=== PATIENT | female | born 1955 | race Caucasian/White ===

== ENCOUNTER 2017-11-16 11:46 | Emergency (ER) | payer MEDICARE, OTHER ==
[~2017-11-16] VITALS: Ht 167.6 cm; Wt 68.0 kg
[~2017-11-16 11:46] MED LIST: ALBU8HFA PO; ARIP10TA15 PO; ARMO150T5 PO; BIOTIN PO; BUDE10.22 INH; BUPR100T5 PO; CALC950T2 PO; CLON2TAB PO; COLACE PO; FLAXSEED OIL PO; KEN40I IJ; LEVO100T PO; MAGN64TA8 PO; MELA3TAB PO; MULT1TAB74 PO; OMEP40CA37 PO; PRED10TA23 PO; SENN-25 PO; SERT100T PO; SOLI10TA2 PO; STE5T PO; TOPI25TA15 PO; TURM500C7 PO; VITA-268 PO; VITAMIN D PO
[2017-11-16 11:49] VITALS: BP 110/74
[2017-11-16 12:16] LABS: BASOPHILS % (AUTO) 0 % (0-1); EOSINOPHILS # (AUTO) 0.2 X10'3 (0-0.9); EOSINOPHILS % (AUTO) 3.8 % (0-6); HEMATOCRIT 39.3 % (35.0-45.0); HEMOGLOBIN 13.5 g/dl (12.0-16.0); LYMPHOCYTES # (AUTO) 0.9 X10'3 (1.1-4.8); LYMPHOCYTES % (AUTO) 13.3 % (21-51); MEAN CORPUSCULAR HEMOGLOBIN 31.6 PG (27.0-31.0); MEAN CORPUSCULAR HGB CONC 34.4 % (33.0-36.5); MEAN CORPUSCULAR VOLUME 91.8 FL (78-98); MEAN PLATELET VOLUME 6.5 FL (7.4-10.4); MONOCYTES # (AUTO) 0.4 X10'3 (0-0.9); MONOCYTES % (AUTO) 5.8 % (2-12); NEUTROPHILS # (AUTO) 5.1 X10'3 (1.8-7.7); NEUTROPHILS % (AUTO) 77.1 % (42-75); PLATELET COUNT 219 X10'3 (140-440); RED BLOOD COUNT 4.29 X10'6 (4.20-5.60); RED CELL DISTRIBUTION WIDTH 13.4 % (11.5-14.5); WHITE BLOOD COUNT 6.6 X10'3 (4.5-11.0)
[2017-11-16 12:32] LABS: ALANINE AMINOTRANSFERASE 34 U/L (12-78); ALBUMIN 3.5 G/DL (3.4-5.0); ALKALINE PHOSPHATASE 175 IU/L (46-116); ANION GAP 9 (8-16); ASPARTATE AMINO TRANSFERASE 26 U/L (10-37); BILIRUBIN,TOTAL 0.4 MG/DL (0.1-1.0); BLOOD UREA NITROGEN 13 MG/DL (7-18); BUN/CREATININE RATIO 14.4 (6.6-38.0); CALCIUM 8.6 MG/DL (8.5-10.1); CHLORIDE 100 MMOL/L (99-107); GLUCOSE 121 MG/DL (70-104); POTASSIUM 3.9 MMOL/L (3.5-5.1); SODIUM 136 MMOL/L (135-145); TOTAL CARBON DIOXIDE 26.8 MMOL/L (24-32); eGFR 63 ML/MIN
[2017-11-16 12:42] LABS: ETHANOL < 0.010 GM/DL (0.0-0.010)
[2017-11-16 12:49] LABS: ACETAMINOPHEN < 2.0 UG/ML (10-30)
[2017-11-16 12:50] LABS: CLARITY,URINE CLEAR (Clear); COLOR,URINE YELLOW (Yellow); GLUCOSE, URINE NEGATIVE (Neg); KETONES,URINE NEGATIVE (Neg); LEUKOCYTE ESTERASE ,URINE NEGATIVE (Neg); NITRITES, URINE NEGATIVE (Neg); OCCULT BLOOD,URINE NEGATIVE (Neg); PH,URINE 6.5 (4.8-8.0); PROTEIN,URINE NEGATIVE (Neg); UROBILINOGEN,URINE 0.2 E.U/dL (0.2-1.0)
[2017-11-16 12:51] LABS: UA COLLECTION TYPE CLN CATCH MIDSTREAM
[2017-11-16 12:55] LABS: URINE AMPHETAMINE SCREEN NEGATIVE (Neg); URINE BARBITUATE SCREEN NEGATIVE (Neg); URINE BENZODIAZEPINES SCREEN NEGATIVE (Neg); URINE CANNABINOID SCREEN NEGATIVE (Neg); URINE COCAINE SCREEN NEGATIVE (Neg); URINE METHADONE SCREEN NEGATIVE (Neg); URINE OPIATE SCREEN POSITIVE (Neg); URINE PHENCYCLIDINE SCREEN NEGATIVE (Neg)
[2017-11-16] MEDS ORDERED: TRIF2TAB PO (14:30)
[2017-11-16] MEDS ORDERED: BUPR200T3 PO (16:00)
[2017-11-16] MEDS ORDERED: METH10TA4 PO ×2 (16:14)
[2017-11-16] MEDS ORDERED: METH500T PO (16:14)
[2017-11-16] MEDS ORDERED: TOPI50TA PO (16:14)
[2017-11-16] MEDS ORDERED: FLUO40CA10 PO (16:14)
[2017-11-16] MEDS ORDERED: MELA3TAB PO (16:14)
[2017-11-16] MEDS ORDERED: LORA10CA PO (16:14)
[2017-11-16] MEDS ORDERED: IBUP-1985 PO (16:14)
[2017-11-16] MEDS ORDERED: BREX2TAB PO (16:14)
== END 2017-11-16 13:25 ==
LOC: ER 11:47
DX: F32.9 Major depressive disorder, single episode, unspecified (principal); R45.851 Suicidal ideations; R10.2 Pelvic and perineal pain; Z88.1 Allergy status to other antibiotic agents; Z88.8 Allergy status to other drugs, medicaments and biological substances; Z79.899 Other long term (current) drug therapy
CPT/HCPCS: 36415; 80053; 80305; 80320; 80329; 81003; 84443; 85025; 99285

== ENCOUNTER 2017-11-16 12:39 | Inpatient (IN) | payer MEDICARE, OTHER ==
[~2017-11-16] VITALS: Ht 167.6 cm; Wt 68.5 kg
[2017-11-16 14:27] VITALS: BP 111/76
[2017-11-16] MEDS ORDERED: TRIF2TAB PO (14:30)
[2017-11-16] MEDS ORDERED: mag hydrox/Alum hydrox/simeth 30ml oral suspension PO PRN (14:35)
[2017-11-16] MEDS ORDERED: magnesium hydroxide 30ml (MOM) UD suspension PO PRN (14:35)
[2017-11-16] MEDS ORDERED: TRIFLUOPERAZINE 2 MG PO SCH (15:00)
[2017-11-16] MEDS: HYDROcodone/acetaminophen 10/325mg tab PO PRN ×2 (15:35→21:54)
[2017-11-16] MEDS ORDERED: BUPR200T3 PO (16:00)
[2017-11-16] MEDS ORDERED: METH500T PO (16:14)
[2017-11-16] MEDS ORDERED: MELA3TAB PO (16:14)
[2017-11-16] MEDS ORDERED: FLUO40CA10 PO (16:14)
[2017-11-16] MEDS ORDERED: METH10TA4 PO ×2 (16:14)
[2017-11-16] MEDS ORDERED: TOPI50TA PO (16:14)
[2017-11-16] MEDS ORDERED: LORA10CA PO (16:14)
[2017-11-16] MEDS ORDERED: IBUP-1985 PO (16:14)
[2017-11-16] MEDS ORDERED: BREX2TAB PO (16:14)
[2017-11-16] MEDS ORDERED: sennosides 8.6mg tablet PO PRN (16:55)
[2017-11-16] MEDS ORDERED: albuterol 2.5 MG/3 ML nebule NEB PRN (17:00)
[2017-11-16] MEDS ORDERED: cyclobenzaprine 10mg tablet PO PRN (17:05)
[2017-11-16 20:00] VITALS: BP 100/70
[2017-11-16] MEDS ORDERED: buPROPion SR 100mg tab PO SCH (20:00)
[2017-11-16] MEDS: ibuprofen 200mg tablet PO PRN (20:09)
[2017-11-16] MEDS ORDERED: topiramate 25mg tablet PO SCH (21:00)
[2017-11-16] MEDS: magnesium Cl slow-release 64mg tablet PO SCH (21:53)
[2017-11-16] MEDS: clonazePAM 1mg tablet PO PRN (21:53)
[2017-11-16] MEDS: oxybutynin 5mg tablet PO SCH (21:53)
[2017-11-16] MEDS: Melatonin 3mg tablet PO PRN (21:53)
[2017-11-16] MEDS: [UNRECOGNIZED DRUG - OTHER] EACHEYE PRN (22:42)
[2017-11-16] MEDS: DIFLUPREDNATE EACHEYE PRN (22:42)
[2017-11-17] MEDS ORDERED: ibuprofen 200mg tablet PO PRN
[2017-11-17] MEDS ORDERED: topiramate 25mg tablet PO SCH ×2 (08:00)
[2017-11-17] MEDS ORDERED: TRIFLUOPERAZINE HCL PO SCH (08:00)
[2017-11-17] MEDS ORDERED: BREXPIPRAZOLE 2 MG PO SCH (08:00)
[2017-11-17] MEDS ORDERED: methylphenidate 5mg tablet PO SCH (08:00)
[2017-11-17] MEDS ORDERED: FLUoxetine 20mg capsule PO SCH (08:00)
[2017-11-17] MEDS ORDERED: aripiprazole 5mg tablet PO SCH ×2 (08:00→21:00)
[2017-11-17] MEDS: FLUoxetine 20mg capsule PO SCH (08:05)
[2017-11-17] MEDS: oxybutynin 5mg tablet PO SCH ×4 (08:05→21:59)
[2017-11-17] MEDS: vitamin B comp w/Vit. C tab 1 TAB TABLET PO SCH (08:05)
[2017-11-17] MEDS: levoTHYROXINE 100mcg tablet PO SCH (08:05)
[2017-11-17] MEDS: loratadine 10mg tablet PO SCH (08:05)
[2017-11-17] MEDS: multivitamins, therapeutics tablet PO SCH (08:06)
[2017-11-17] MEDS: topiramate 25mg tablet PO SCH ×2 (08:06→21:59)
[2017-11-17] MEDS: pantoprazole 40mg Tablet.DR PO SCH (08:06)
[2017-11-17 08:07] VITALS: BP 113/75
[2017-11-17] MEDS: HYDROcodone/acetaminophen 10/325mg tab PO PRN ×2 (08:07→22:03)
[2017-11-17 10:05] LABS: HEMOGLOBIN A1C 5.4 % (4.5-6.2)
[2017-11-17 10:26] LABS: CHOL/HDL RATIO 2.2 (0.00-4.99); CHOLESTEROL 150 MG/DL (0-200); HDL CHOLESTEROL 69 MG/DL (35-60); LDL CHOLESTEROL 63 MG/DL (50-100); TRIGLYCERIDES 102 MG/DL (20-135)
[2017-11-17] MEDS ORDERED: HYDROcodone/acetaminophen 10/325mg tab PO PRN (12:00)
[2017-11-17] MEDS: buPROPion SR 100mg tab PO SCH (12:57)
[2017-11-17] MEDS: methylphenidate 5mg tablet PO SCH (12:58)
[2017-11-17] MEDS: calcium carbonate 500mg tablet PO SCH ×2 (12:58→17:40)
[2017-11-17] MEDS: ibuprofen 200mg tablet PO PRN (15:59)
[2017-11-17] MEDS: [UNRECOGNIZED DRUG - OTHER] EACHEYE PRN ×2 (17:15→22:03)
[2017-11-17] MEDS: DIFLUPREDNATE EACHEYE PRN ×2 (17:15→22:03)
[2017-11-17 19:00] VITALS: BP 113/71
[2017-11-17] MEDS: sennosides/docusate sodium tablet PO SCH (21:59)
[2017-11-17] MEDS: magnesium Cl slow-release 64mg tablet PO SCH (22:00)
[2017-11-17] MEDS: Melatonin 3mg tablet PO PRN (22:02)
[2017-11-17] MEDS: clonazePAM 1mg tablet PO PRN (22:02)
[2017-11-18] MEDS: buPROPion SR 100mg tab PO SCH ×2 (07:29→13:00)
[2017-11-18] MEDS: pantoprazole 40mg Tablet.DR PO SCH (07:29)
[2017-11-18] MEDS: levoTHYROXINE 100mcg tablet PO SCH (07:29)
[2017-11-18] MEDS: HYDROcodone/acetaminophen 10/325mg tab PO PRN ×3 (07:29→21:11)
[2017-11-18 08:00] VITALS: BP 108/61
[2017-11-18] MEDS: DUREZOL LEFTEYE SCH ×3 (08:34→21:15)
[2017-11-18] MEDS: vitamin B comp w/Vit. C tab 1 TAB TABLET PO SCH (08:35)
[2017-11-18] MEDS: loratadine 10mg tablet PO SCH (08:35)
[2017-11-18] MEDS: FLUoxetine 20mg capsule PO SCH (08:35)
[2017-11-18] MEDS: calcium carbonate 500mg tablet PO SCH ×3 (08:35→17:51)
[2017-11-18] MEDS: vitamin D (cholecalciferol) 1,000 unit tablet PO SCH (08:35)
[2017-11-18] MEDS: topiramate 25mg tablet PO SCH ×2 (08:36→21:12)
[2017-11-18] MEDS: methylphenidate 5mg tablet PO SCH ×2 (08:36→13:01)
[2017-11-18] MEDS: oxybutynin 5mg tablet PO SCH ×4 (08:36→21:12)
[2017-11-18] MEDS: multivitamins, therapeutics tablet PO SCH (08:40)
[2017-11-18] MEDS: clonazePAM 1mg tablet PO PRN ×2 (09:53→21:13)
[2017-11-18] MEDS: calcitonin, salmon,Synth Nasal spray 200 units/actuation NS SCH (11:46)
[2017-11-18] MEDS: ibuprofen 200mg tablet PO PRN (13:01)
[2017-11-18 19:00] VITALS: BP 105/70
[2017-11-18] MEDS: aripiprazole 5mg tablet PO SCH (21:11)
[2017-11-18] MEDS: sennosides/docusate sodium tablet PO SCH (21:12)
[2017-11-18] MEDS: magnesium Cl slow-release 64mg tablet PO SCH (21:12)
[2017-11-18] MEDS: Melatonin 3mg tablet PO PRN (21:13)
[2017-11-19 07:07] VITALS: BP 112/70
[2017-11-19] MEDS: levoTHYROXINE 100mcg tablet PO SCH (07:42)
[2017-11-19] MEDS: pantoprazole 40mg Tablet.DR PO SCH (07:43)
[2017-11-19] MEDS: HYDROcodone/acetaminophen 10/325mg tab PO PRN ×3 (07:47→19:57)
[2017-11-19] MEDS: DUREZOL LEFTEYE SCH ×3 (08:00→21:14)
[2017-11-19] MEDS: calcium carbonate 500mg tablet PO SCH ×3 (08:57→17:10)
[2017-11-19] MEDS: topiramate 25mg tablet PO SCH ×2 (08:57→21:17)
[2017-11-19] MEDS: methylphenidate 5mg tablet PO SCH ×2 (08:57→13:24)
[2017-11-19] MEDS: buPROPion SR 100mg tab PO SCH ×2 (08:58→13:25)
[2017-11-19] MEDS: FLUoxetine 20mg capsule PO SCH (08:59)
[2017-11-19] MEDS: multivitamins, therapeutics tablet PO SCH (08:59)
[2017-11-19] MEDS: oxybutynin 5mg tablet PO SCH ×4 (08:59→21:15)
[2017-11-19] MEDS: loratadine 10mg tablet PO SCH (08:59)
[2017-11-19] MEDS: vitamin D (cholecalciferol) 1,000 unit tablet PO SCH (08:59)
[2017-11-19] MEDS: calcitonin, salmon,Synth Nasal spray 200 units/actuation NS SCH (09:32)
[2017-11-19] MEDS: vitamin B comp w/Vit. C tab 1 TAB TABLET PO SCH (11:26)
[2017-11-19] MEDS: ibuprofen 200mg tablet PO PRN (19:57)
[2017-11-19 20:00] VITALS: BP 120/81
[2017-11-19] MEDS: aripiprazole 5mg tablet PO SCH (21:14)
[2017-11-19] MEDS: docusate sod 250mg capsule PO SCH (21:15)
[2017-11-19] MEDS: magnesium Cl slow-release 64mg tablet PO SCH (21:15)
[2017-11-19] MEDS: clonazePAM 1mg tablet PO PRN (21:15)
[2017-11-19] MEDS: Melatonin 3mg tablet PO PRN (21:15)
[2017-11-19] MEDS: sennosides/docusate sodium tablet PO SCH (21:16)
[2017-11-20] MEDS: HYDROcodone/acetaminophen 10/325mg tab PO PRN ×2 (07:36→19:52)
[2017-11-20] MEDS: calcitonin, salmon,Synth Nasal spray 200 units/actuation NS SCH (07:39)
[2017-11-20] MEDS: DUREZOL LEFTEYE SCH ×3 (07:40→20:52)
[2017-11-20] MEDS: methylphenidate 5mg tablet PO SCH ×2 (07:41→12:34)
[2017-11-20] MEDS: buPROPion SR 100mg tab PO SCH ×2 (07:41→14:10)
[2017-11-20] MEDS: vitamin D (cholecalciferol) 1,000 unit tablet PO SCH (07:45)
[2017-11-20] MEDS: topiramate 25mg tablet PO SCH (07:45)
[2017-11-20] MEDS: vitamin B comp w/Vit. C tab 1 TAB TABLET PO SCH (07:45)
[2017-11-20] MEDS: levoTHYROXINE 100mcg tablet PO SCH (07:45)
[2017-11-20] MEDS: loratadine 10mg tablet PO SCH (07:45)
[2017-11-20] MEDS: oxybutynin 5mg tablet PO SCH ×4 (07:46→20:43)
[2017-11-20] MEDS: calcium carbonate 500mg tablet PO SCH ×3 (07:46→17:37)
[2017-11-20] MEDS: multivitamins, therapeutics tablet PO SCH (07:46)
[2017-11-20] MEDS: pantoprazole 40mg Tablet.DR PO SCH (07:46)
[2017-11-20 08:00] VITALS: BP 99/75
[2017-11-20] MEDS: FLUoxetine 20mg capsule PO SCH (08:18)
[2017-11-20] MEDS: ibuprofen 200mg tablet PO PRN ×2 (12:35→19:51)
[2017-11-20] MEDS: Melatonin 3mg tablet PO PRN (20:42)
[2017-11-20] MEDS: docusate sod 250mg capsule PO SCH (20:43)
[2017-11-20] MEDS: clonazePAM 1mg tablet PO PRN (20:43)
[2017-11-20] MEDS: magnesium Cl slow-release 64mg tablet PO SCH (20:44)
[2017-11-20] MEDS: aripiprazole 5mg tablet PO SCH (20:44)
[2017-11-20] MEDS: sennosides/docusate sodium tablet PO SCH (20:45)
[2017-11-20 20:55] VITALS: BP 127/88
[2017-11-20] MEDS ORDERED: topiramate 25mg tablet PO SCH (21:00)
[2017-11-21] MEDS: HYDROcodone/acetaminophen 10/325mg tab PO PRN (05:50)
[2017-11-21 08:00] VITALS: BP 110/82
[2017-11-21] MEDS: DUREZOL LEFTEYE SCH ×2 (08:00→12:28)
[2017-11-21] MEDS: levoTHYROXINE 100mcg tablet PO SCH (08:31)
[2017-11-21] MEDS: loratadine 10mg tablet PO SCH (08:31)
[2017-11-21] MEDS: buPROPion SR 100mg tab PO SCH ×2 (08:31→12:27)
[2017-11-21] MEDS: vitamin B comp w/Vit. C tab 1 TAB TABLET PO SCH (08:31)
[2017-11-21] MEDS: topiramate 25mg tablet PO SCH (08:31)
[2017-11-21] MEDS: FLUoxetine 20mg capsule PO SCH (08:32)
[2017-11-21] MEDS: oxybutynin 5mg tablet PO SCH ×2 (08:32→12:27)
[2017-11-21] MEDS: multivitamins, therapeutics tablet PO SCH (08:32)
[2017-11-21] MEDS: vitamin D (cholecalciferol) 1,000 unit tablet PO SCH (08:32)
[2017-11-21] MEDS: pantoprazole 40mg Tablet.DR PO SCH (08:32)
[2017-11-21] MEDS: methylphenidate 5mg tablet PO SCH ×2 (08:33→12:27)
[2017-11-21] MEDS: calcium carbonate 500mg tablet PO SCH ×2 (08:43→12:26)
[2017-11-21] MEDS: calcitonin, salmon,Synth Nasal spray 200 units/actuation NS SCH (08:44)
[2017-11-21] MEDS ORDERED: HYDR-3972 PO (10:16)
[2017-11-21] MEDS ORDERED: BUPR100T7 PO (10:16)
[2017-11-21] MEDS ORDERED: DOCU250C96 PO (10:16)
[2017-11-21] MEDS ORDERED: STE5T PO (10:16)
[2017-11-21] MEDS ORDERED: TOP25T PO ×2 (10:16)
[2017-11-21] MEDS ORDERED: FLUO40CA10 PO (10:16)
[2017-11-21] MEDS ORDERED: ARIP20TA10 PO (10:16)
[2017-11-21] MEDS: ibuprofen 200mg tablet PO PRN (12:26)
== END 2017-11-21 17:00 | disposition home or self-care (01) | DRG 885 ==
LOC: ADULT MH 12:39
PROVIDERS: ADMIT Psychiatry & Neurology Psychiatry; ATTEND Psychiatry & Neurology Psychiatry
DX: F33.2 Major depressive disorder, recurrent severe without psychotic features (principal); R45.851 Suicidal ideations; F43.10 Post-traumatic stress disorder, unspecified; F60.81 Narcissistic personality disorder; F60.3 Borderline personality disorder; F10.11 Alcohol abuse, in remission; F90.9 Attention-deficit hyperactivity disorder, unspecified type; E03.9 Hypothyroidism, unspecified; G89.4 Chronic pain syndrome; J45.909 Unspecified asthma, uncomplicated; M81.0 Age-related osteoporosis without current pathological fracture; Z81.1 Family history of alcohol abuse and dependence; Z90.49 Acquired absence of other specified parts of digestive tract; Z98.84 Bariatric surgery status
CPT/HCPCS: 36415; 72195; 80061; 83036; 87070; 97116; 97161; 97530; 99285

== ENCOUNTER 2018-09-17 11:11 | Emergency (ER) | payer MEDICARE, MEDICAID ==
[~2018-09-17] VITALS: Ht 167.6 cm; Wt 63.2 kg
[~2018-09-17 11:11] MED LIST changes: -ARIP10TA15 PO; +ARIP20TA10 PO; -ARMO150T5 PO; -BIOTIN PO; -BUDE10.22 INH; -BUPR100T5 PO; +BUPR100T7 PO; -CALC950T2 PO; -COLACE PO; +DOCU250C96 PO; +FLUO40CA10 PO; +HYDR-3972 PO; -KEN40I IJ; +LORA10CA PO; +METH10TA4 PO; +METH500T PO; -PRED10TA23 PO; -SERT100T PO; -SOLI10TA2 PO; -STE5T PO; +TOP25T PO; -TOPI25TA15 PO; -TURM500C7 PO
--- NOTE | 2018-09-17 11:45 | NUR ---
SPOKE TO [facility] FROM [facility] ON THE PHONE TO CHECK WITH DR HUERTA TO SEE IF HE TALKED TO DR PHIPPS REGARDING THIS PATIENT PER PATIENT DR PHIPPS SPOKE TO DR HUERTA ABOUT ADMISSION TO [facility]"
--- NOTE | 2018-09-17 12:20 | NUR ---
Brought over from Main ER to Bed 24. Patient has been accepted to [facility] by Dr. Jorgensen. Patient waiting to be brought upstairs. In good spirits at this time.
[2018-09-17 12:21] LABS: BASOPHILS % (AUTO) 0.3 % (0-1); EOSINOPHILS # (AUTO) 0.1 X10'3 (0-0.9); EOSINOPHILS % (AUTO) 2.6 % (0-6); HEMATOCRIT 41.8 % (35.0-45.0); HEMOGLOBIN 14.1 g/dl (12.0-16.0); LYMPHOCYTES # (AUTO) 1.1 X10'3 (1.1-4.8); LYMPHOCYTES % (AUTO) 19.9 % (21-51); MEAN CORPUSCULAR HEMOGLOBIN 31.6 PG (27.0-31.0); MEAN CORPUSCULAR HGB CONC 33.8 g/dL (33.0-36.5); MEAN CORPUSCULAR VOLUME 93.5 FL (78-98); MEAN PLATELET VOLUME 7.6 FL (7.4-10.4); MONOCYTES # (AUTO) 0.5 X10'3 (0-0.9); MONOCYTES % (AUTO) 9.3 % (2-12); NEUTROPHILS # (AUTO) 3.7 X10'3 (1.8-7.7); NEUTROPHILS % (AUTO) 67.9 % (42-75); PLATELET COUNT 205 X10'3 (140-440); RED BLOOD COUNT 4.47 X10'6 (4.20-5.60); RED CELL DISTRIBUTION WIDTH 13.7 % (11.5-14.5); WHITE BLOOD COUNT 5.5 X10'3 (4.5-11.0)
[2018-09-17 12:30] LABS: ALANINE AMINOTRANSFERASE 42 U/L (12-78); ALBUMIN 3.5 G/DL (3.4-5.0); ALBUMIN/GLOBULIN RATIO 1.2 (1.1-1.5); ALKALINE PHOSPHATASE 97 IU/L (46-116); ANION GAP 7 (8-16); ASPARTATE AMINO TRANSFERASE 31 U/L (10-37); BILIRUBIN,TOTAL 0.4 MG/DL (0.1-1.0); BLOOD UREA NITROGEN 10 MG/DL (7-18); BUN/CREATININE RATIO 13.5 (6.6-38.0); CALCIUM 8.9 MG/DL (8.5-10.1); CHLORIDE 104 MMOL/L (99-107); CREATININE 0.74 MG/DL (0.40-0.90); GLUCOSE 105 MG/DL (70-104); POTASSIUM 4.1 MMOL/L (3.5-5.1); SODIUM 135 MMOL/L (135-145); TOTAL CARBON DIOXIDE 24.5 MMOL/L (24-32); TOTAL PROTEIN 6.5 G/DL (6.4-8.2); eGFR 79 ML/MIN
[2018-09-17 12:31] LABS: ETHANOL < 0.010 GM/DL (0.0-0.010)
[2018-09-17 13:10] LABS: CLARITY,URINE CLEAR (Clear); COLOR,URINE YELLOW (Yellow); GLUCOSE, URINE NEGATIVE (Neg); KETONES,URINE NEGATIVE (Neg); LEUKOCYTE ESTERASE ,URINE NEGATIVE (Neg); NITRITES, URINE NEGATIVE (Neg); OCCULT BLOOD,URINE SMALL (Neg); PH,URINE 5.5 (4.8-8.0); PROTEIN,URINE NEGATIVE (Neg); UROBILINOGEN,URINE 0.2 E.U/dL (0.2-1.0)
--- NOTE | 2018-09-17 13:10 | NUR ---
Presented with lunch tray. Ate 100% of her meal. Dr. Jorgensen here to see patient.
[2018-09-17 13:22] LABS: UA COLLECTION TYPE CLN CATCH MIDSTREAM
[2018-09-17 13:23] LABS: HYALINE CASTS 0-3 /LPF (NEGATIVE); MUCUS STRANDS NONE SEEN /LPF (Neg); SQUAMOUS EPITHELIAL CELL,UR FEW /LPF (FEW)
[2018-09-17 13:24] LABS: BACTERIA,URINE NONE SEEN /HPF (Neg); RBC,URINE 0-2 /HPF (0-2); URINE AMPHETAMINE SCREEN NEGATIVE (Neg); URINE BARBITUATE SCREEN NEGATIVE (Neg); URINE BENZODIAZEPINES SCREEN NEGATIVE (Neg); URINE CANNABINOID SCREEN NEGATIVE (Neg); URINE COCAINE SCREEN NEGATIVE (Neg); URINE METHADONE SCREEN NEGATIVE (Neg); URINE OPIATE SCREEN NEGATIVE (Neg); URINE PHENCYCLIDINE SCREEN NEGATIVE (Neg); WBC,URINE 0-4 /HPF (0-4)
[2018-09-17] MEDS ORDERED: clonazePAM 1mg tablet PO PRN (14:35)
--- NOTE | 2018-09-17 14:40 | NUR ---
Patient came to staff and stated she was feeling "very anxious." States she usually takes Klonopine 2 mg. PO TID PRN. Dr. Jorgensen consulted. Order given for Ativan 2 mg. PO. Administered as ordered.
[2018-09-17 16:48] VITALS: BP 138/110
[2018-09-17] MEDS ORDERED: BUDE10.22 INH (17:59)
[2018-09-17] MEDS ORDERED: SUVO20TA PO (17:59)
[2018-09-17] MEDS ORDERED: tumeric PO (17:59)
[2018-09-17] MEDS ORDERED: motrin PO (17:59)
[2018-09-17] MEDS ORDERED: stelazine PO (17:59)
[2018-09-17] MEDS ORDERED: calcium PO (17:59)
[2018-09-17] MEDS ORDERED: DOCU-28 PO (17:59)
[2018-09-17] MEDS ORDERED: BIOT5CAP2 PO (17:59)
[2018-09-17] MEDS ORDERED: BREX4TAB PO (17:59)
[2018-09-17] MEDS ORDERED: CHOL10002 PO (17:59)
[2018-09-17] MEDS ORDERED: TOP100T PO (17:59)
[2018-09-17] MEDS ORDERED: ditropan PO ×2 (17:59)
[2018-09-17] MEDS ORDERED: DENO60DI SUBCUT (22:28)
== END 2018-09-17 16:45 ==
LOC: ER 11:11
DX: R45.851 Suicidal ideations (principal); J45.909 Unspecified asthma, uncomplicated; Z86.14 Personal history of Methicillin resistant Staphylococcus aureus infection; M81.0 Age-related osteoporosis without current pathological fracture; Z90.49 Acquired absence of other specified parts of digestive tract; Z98.890 Other specified postprocedural states; Z88.1 Allergy status to other antibiotic agents; Z88.8 Allergy status to other drugs, medicaments and biological substances; Z79.899 Other long term (current) drug therapy
CPT/HCPCS: 36415; 80053; 80305; 80320; 81001; 84443; 85025; 99285

== ENCOUNTER 2018-09-17 15:40 | Inpatient (IN) | payer MEDICARE, MEDICAID | END 2018-09-22 13:20 | disposition still patient (30) | LOC: ADULT MH 15:40 | DX: R45.851 Suicidal ideations (principal); F32.9 Major depressive disorder, single episode, unspecified; F43.10 Post-traumatic stress disorder, unspecified; E11.9 Type 2 diabetes mellitus without complications ==

== ENCOUNTER 2019-06-13 13:48 | Emergency (ER) | payer MEDICARE ==
[~2019-06-13] VITALS: Ht 167.6 cm; Wt 57.1 kg
[~2019-06-13 13:48] MED LIST changes: -ARIP20TA10 PO; +BIOT5CAP2 PO; +BREX4TAB PO; +BUDE10.22 INH; +CHOL10002 PO; +DENO60DI SUBCUT; +DOCU-28 PO; -DOCU250C96 PO; -HYDR-3972 PO; -LORA10CA PO; -MELA3TAB PO; +MELA3TAB64 PO; +OMEP40CA13 PO; -OMEP40CA37 PO; +SUVO20TA PO; +TOP100T PO; -TOP25T PO; -VITAMIN D PO; +calcium PO; +ditropan PO; +motrin PO; +stelazine PO; +tumeric PO
[2019-06-13 14:26] LABS: URINE HCG NEGATIVE (NEG)
[2019-06-13 14:28] LABS: CLARITY,URINE SLIGHTLY CLOUDY (Clear); COLOR,URINE YELLOW (Yellow); GLUCOSE, URINE NEGATIVE (Neg); KETONES,URINE NEGATIVE (Neg); LEUKOCYTE ESTERASE ,URINE NEGATIVE (Neg); NITRITES, URINE NEGATIVE (Neg); OCCULT BLOOD,URINE NEGATIVE (Neg); PH,URINE 6.5 (4.8-8.0); PROTEIN,URINE NEGATIVE (Neg); UA COLLECTION TYPE CLN CATCH MIDSTREAM; UROBILINOGEN,URINE 0.2 E.U/dL (0.2-1.0)
[2019-06-13 14:33] LABS: SQUAMOUS EPITHELIAL CELL,UR FEW /LPF (FEW); URINE AMPHETAMINE SCREEN NEGATIVE (Neg); URINE BARBITUATE SCREEN NEGATIVE (Neg); URINE BENZODIAZEPINES SCREEN NEGATIVE (Neg); URINE CANNABINOID SCREEN NEGATIVE (Neg); URINE COCAINE SCREEN NEGATIVE (Neg); URINE METHADONE SCREEN NEGATIVE (Neg); URINE OPIATE SCREEN NEGATIVE (Neg); URINE PHENCYCLIDINE SCREEN NEGATIVE (Neg)
[2019-06-13 14:34] LABS: BACTERIA,URINE 1+ /HPF (Neg); RBC,URINE 0-2 /HPF (0-2); WBC,URINE 0-4 /HPF (0-4)
[2019-06-13 15:22] LABS: BASOPHILS % (AUTO) 0.3 % (0-1); EOSINOPHILS # (AUTO) 0.2 X10'3 (0-0.9); EOSINOPHILS % (AUTO) 2.6 % (0-6); HEMATOCRIT 38.3 % (35.0-45.0); HEMOGLOBIN 13.1 g/dl (12.0-16.0); LYMPHOCYTES # (AUTO) 1.1 X10'3 (1.1-4.8); LYMPHOCYTES % (AUTO) 16.1 % (21-51); MEAN CORPUSCULAR HEMOGLOBIN 31.3 PG (27.0-31.0); MEAN CORPUSCULAR HGB CONC 34.1 g/dL (33.0-36.5); MEAN CORPUSCULAR VOLUME 91.7 FL (78-98); MEAN PLATELET VOLUME 7.9 FL (7.4-10.4); MONOCYTES # (AUTO) 0.5 X10'3 (0-0.9); MONOCYTES % (AUTO) 7.2 % (2-12); NEUTROPHILS # (AUTO) 4.8 X10'3 (1.8-7.7); NEUTROPHILS % (AUTO) 73.8 % (42-75); PLATELET COUNT 214 X10'3 (140-440); RED BLOOD COUNT 4.18 X10'6 (4.20-5.60); RED CELL DISTRIBUTION WIDTH 15.3 % (11.5-14.5); WHITE BLOOD COUNT 6.6 X10'3 (4.5-11.0)
[2019-06-13 15:26] LABS: ALANINE AMINOTRANSFERASE 33 U/L (12-78); ALBUMIN 3.3 G/DL (3.4-5.0); ALBUMIN/GLOBULIN RATIO 1.1 (1.1-1.5); ALKALINE PHOSPHATASE 106 IU/L (46-116); ANION GAP 10 (8-16); ASPARTATE AMINO TRANSFERASE 23 U/L (10-37); BILIRUBIN,TOTAL 0.4 MG/DL (0.1-1.0); BLOOD UREA NITROGEN 13 MG/DL (7-18); BUN/CREATININE RATIO 16.5 (6.6-38.0); CALCIUM 8.4 MG/DL (8.5-10.1); CHLORIDE 107 MMOL/L (99-107); CREATININE 0.79 MG/DL (0.40-0.90); GLUCOSE 117 MG/DL (70-104); POTASSIUM 3.8 MMOL/L (3.5-5.1); SODIUM 139 MMOL/L (135-145); TOTAL CARBON DIOXIDE 22.4 MMOL/L (24-32); TOTAL PROTEIN 6.3 G/DL (6.4-8.2); eGFR 73 ML/MIN
--- NOTE | 2019-06-13 15:30 | NUR ---
Pt now states "I'm feeling better now, can I go home".
[2019-06-13 15:35] LABS: ETHANOL < 0.010 GM/DL (0.0-0.010)
[2019-06-13 15:41] LABS: ACETAMINOPHEN < 2.0 UG/ML (10-30)
--- NOTE | 2019-06-13 16:15 | NUR ---
Pt currently being evaluated by Dr. Jorgensen at bedside.
[2019-06-13] MEDS ORDERED: OXYB5TAB16 PO (16:17)
[2019-06-13] MEDS ORDERED: DONE5TAB7 PO (16:17)
[2019-06-13] MEDS ORDERED: STE5T PO (16:17)
[2019-06-13] MEDS ORDERED: FLUO40CA10 PO (16:17)
[2019-06-13] MEDS ORDERED: OMEP-297 PO (16:17)
[2019-06-13] MEDS ORDERED: BUPR100T13 PO (16:17)
[2019-06-13] MEDS ORDERED: Melatonin 3mg tablet PO PRN (16:55)
[2019-06-13] MEDS ORDERED: sennosides 8.6mg tablet PO PRN (17:05)
[2019-06-13] MEDS ORDERED: BREX2TAB PO (17:16)
--- NOTE | 2019-06-13 18:35 | NUR ---
Pt discharged paperwork reviewed and signed. Pt aware of resoruces and numbers to call should she feel suicidal again. Pt denies anxiety and SI at this time, "I feel better, I am ready to go home." Pt given belongings and changed into her personal clothing. Home medications returned to her. Mood: "I'm better." Affect: Pleasant.
--- NOTE | 2019-06-13 18:45 | NUR ---
Pt escorted out to main lobby with tech. Pt's car is in the ED parking lot; No medications given prior to discharge.
[2019-06-13] MEDS ORDERED: albuterol 2.5 MG/3 ML nebule NEB SCH (19:00)
[2019-06-13] MEDS ORDERED: non-formulary drug (albuterol inhaler (Pro-Air Inhaler) 2 PUFFS) PO PRN (19:10)
[2019-06-13 19:41] VITALS: BP 126/88
[2019-06-13] MEDS ORDERED: topiramate 100mg tablet PO SCH (20:00)
[2019-06-13] MEDS ORDERED: non-formulary drug (Fluoxetine HCl (Prozac) 1 CAP) PO SCH (20:00)
[2019-06-13] MEDS ORDERED: budesonide 0.5mg/2ml UD nebule IH SCH (20:00)
[2019-06-13] MEDS ORDERED: docusate sod 100mg capsule PO SCH (21:00)
[2019-06-13] MEDS ORDERED: BUPROPION HCL PO SCH (21:00)
[2019-06-13] MEDS ORDERED: vitamin D (cholecalciferol) 1,000 unit tablet PO SCH (21:00)
[2019-06-13] MEDS ORDERED: oxybutynin 5mg tablet PO SCH (21:00)
[2019-06-13] MEDS ORDERED: clonazePAM 1mg tablet PO PRN (21:00)
[2019-06-13] MEDS ORDERED: vitamin B comp w/Vit. C tab 1 TAB TABLET PO SCH (21:00)
[2019-06-13] MEDS ORDERED: donepezil 5mg tablet PO SCH (21:00)
[2019-06-14] MEDS ORDERED: methylphenidate 5mg tablet PO SCH (07:30)
[2019-06-14] MEDS ORDERED: pantoprazole 40mg Tablet.DR PO SCH (08:00)
[2019-06-14] MEDS ORDERED: multivitamins, therapeutics tablet PO SCH (08:00)
[2019-06-14] MEDS ORDERED: levoTHYROXINE 100mcg tablet PO SCH (08:00)
== END 2019-06-13 18:45 | disposition home or self-care (01) ==
LOC: ER 13:49
DX: F31.9 Bipolar disorder, unspecified (principal); F41.9 Anxiety disorder, unspecified; R45.851 Suicidal ideations; J45.909 Unspecified asthma, uncomplicated; M81.0 Age-related osteoporosis without current pathological fracture; G30.9 Alzheimer's disease, unspecified; F02.80 Dementia in other diseases classified elsewhere, unspecified severity, without behavioral disturbance, psychotic disturbance, mood disturbance, and anxiety; Z90.49 Acquired absence of other specified parts of digestive tract; Z98.890 Other specified postprocedural states; Z79.899 Other long term (current) drug therapy; Z88.1 Allergy status to other antibiotic agents; Z88.8 Allergy status to other drugs, medicaments and biological substances
CPT/HCPCS: 36415; 80053; 80305; 80320; 80329; 81001; 81025; 84443; 85025; 99284

== ENCOUNTER 2020-03-14 14:36 | Emergency (ER) | payer MEDICARE ==
[~2020-03-14] VITALS: Ht 167.6 cm; Wt 54.5 kg
[~2020-03-14 14:36] MED LIST changes: +BREX2TAB PO; -BREX4TAB PO; +BUPR100T13 PO; -BUPR100T7 PO; +CALC950T2 PO; +DONE5TAB7 PO; +FLAX100032 PO; -FLAXSEED OIL PO; +IBUP-1985 PO; +MELA3TAB39 PO; -MELA3TAB64 PO; +METH-360 PO; -METH500T PO; +MULT-620 PO; -MULT1TAB74 PO; +NITR0.4T48 SL; +OMEP20CA15 PO; -OMEP40CA13 PO; +OXYB5TAB16 PO; +STE5T PO; -SUVO20TA PO; -calcium PO; -ditropan PO; -motrin PO; -stelazine PO; -tumeric PO
[2020-03-14 14:43] VITALS: BP 104/82
[2020-03-14] MEDS ORDERED: HYDR-4383 PO (15:53)
== END 2020-03-14 16:10 | disposition home or self-care (01) ==
LOC: ER 14:36
DX: M25.561 Pain in right knee (principal); J45.909 Unspecified asthma, uncomplicated; E03.9 Hypothyroidism, unspecified; M81.0 Age-related osteoporosis without current pathological fracture; F31.9 Bipolar disorder, unspecified; F41.9 Anxiety disorder, unspecified; F12.90 Cannabis use, unspecified, uncomplicated; Z86.14 Personal history of Methicillin resistant Staphylococcus aureus infection; Z90.49 Acquired absence of other specified parts of digestive tract; Z98.890 Other specified postprocedural states; Z72.89 Other problems related to lifestyle; Z88.8 Allergy status to other drugs, medicaments and biological substances; Z79.899 Other long term (current) drug therapy; W18.30XA Fall on same level, unspecified, initial encounter; Y93.89 Activity, other specified; Y92.89 Other specified places as the place of occurrence of the external cause; Y99.8 Other external cause status
CPT/HCPCS: 73560; 99284

== ENCOUNTER 2020-09-16 06:34 | Day surgery (SDC) | payer MEDICARE ==
[~2020-09-16] VITALS: Ht 167.6 cm; Wt 57.1 kg
[2020-09-16] VITALS (12 sets, daily range): BP systolic 107–117; BP diastolic 53–77
[~2020-09-16 06:34] MED LIST changes: -ALBU8HFA PO; -BUDE10.22 INH; -BUPR100T13 PO; +BUPR100T16 PO; -DENO60DI SUBCUT; -DOCU-28 PO; +DOCU250C96 PO; -DONE5TAB7 PO; -FLUO40CA10 PO; -METH-360 PO; +PRED5DRO23 LEFTEYE; +SERT-434 PO; +ceFAZolin 2gm in dextrose, iso 50 ML IV ONE; +famotidine 20mg tablet PO ONE; +ringers solution, lacted 1,000 ML IV SCH
[2020-09-16] MEDS ORDERED: morphine 2 MG/ML inj. syringe IV PRN (08:15)
[2020-09-16] MEDS ORDERED: proCHLORperazine 10 MG/2 ml inj IV PRN (08:15)
[2020-09-16] MEDS ORDERED: morphine 4 MG/ML inj SYRINge IV PRN (08:15)
[2020-09-16] MEDS ORDERED: ringers solution, lacted 1,000 ML IV SCH (08:15)
[2020-09-16] MEDS ORDERED: ondansetron/PF 4mg/2ml inj IV PRN (08:15)
[2020-09-16] MEDS ORDERED: meperidine/PF 25mg/ml syringe IV PRN ×3 (08:15)
[2020-09-16] MEDS ORDERED: dexamethasone sod phosphate 10mg/ml inj ONE (13:00)
[2020-09-16] MEDS ORDERED: sevoflurane 250ml liquid IH ONE (13:00)
[2020-09-16] MEDS ORDERED: ondansetron/PF 4mg/2ml inj ONE (13:00)
[2020-09-16] MEDS ORDERED: MIDAZolam 1 MG/ML 5ML VIAL ONE (13:16)
[2020-09-16] MEDS ORDERED: ROPIVAcaine 0.5% (5mg/ml) 30ml vial ONE (13:17)
[2020-09-16] MEDS ORDERED: fentaNYL/PF 50MCG/1 ML 2ML syringe ONE (13:17)
[2020-09-16] MEDS ORDERED: LIDOcaine 2% (20mg/ml) 5ml vial ONE (13:21)
[2020-09-16] MEDS ORDERED: propofol inj 20 ML IV ONE (13:21)
[2020-09-16] MEDS ORDERED: levoFLOXACIN-Levaquin 500mg/D5 100 ML IV ONE (14:05)
--- NOTE | 2020-09-16 16:19 | NUR ---
PT UP AND VOIDED, STEADY ON FEET. DRESSED, UNABLE TO REACH PTS RIDE, AWAITING RETURN CALL. PT COMFORTABLE, NO C/O. Addendum: 09/16/20 at 1620 by Nikki Guy RN Amended: Links added.
[2020-09-16] MEDS ORDERED: HYDROcodone/acetaminophen 5mg/325mg tablet PO ONE (16:25)
--- NOTE | 2020-09-16 16:45 | NUR ---
PT GIVEN NORCO FOR RIDE HOME TO RED BLUFF, SLIGHT PAIN AT WOUND VAC INSERTION SITE, OTHERWISE PT COMFORTABLE, VOIDED X 2, DRINKING AND EATING. D/C INSTRUCTIONS GIVEN AND GONE OVER W/PT WHO VERBALIZED UNDERSTANDING. PT D/CD TO HOME VIA W/C TO PRIVATE VEHICLE W/O INCIDENT. Addendum: 09/16/20 at 1657 by Nikki Guy RN Amended: Links added.
== END 2020-09-16 16:45 | disposition home or self-care (01) ==
LOC: PAS 06:34
PROVIDERS: ATTEND Surgery
DX: T81.89XA Other complications of procedures, not elsewhere classified, initial encounter (principal); N18.9 Chronic kidney disease, unspecified; E03.8 Other specified hypothyroidism; F31.60 Bipolar disorder, current episode mixed, unspecified; J45.909 Unspecified asthma, uncomplicated; M81.0 Age-related osteoporosis without current pathological fracture; E03.9 Hypothyroidism, unspecified; F41.9 Anxiety disorder, unspecified; H40.9 Unspecified glaucoma; Z86.14 Personal history of Methicillin resistant Staphylococcus aureus infection; Z88.1 Allergy status to other antibiotic agents; Z88.8 Allergy status to other drugs, medicaments and biological substances; G89.18 Other acute postprocedural pain; Z98.84 Bariatric surgery status; Z90.49 Acquired absence of other specified parts of digestive tract; Z98.890 Other specified postprocedural states; Z79.899 Other long term (current) drug therapy; Z96.612 Presence of left artificial shoulder joint; Y83.8 Other surgical procedures as the cause of abnormal reaction of the patient, or of later complication, without mention of misadventure at the time of the procedure; Y92.89 Other specified places as the place of occurrence of the external cause
CPT/HCPCS: 11042; 64415; 76942; 82948; 87070; 87075; 97605; J1100; J1956; J2001; J2250; J2405; J2704; J3010; J7120; A4618; A6550; A7000; J2795

== ENCOUNTER 2020-11-07 12:53 | Emergency (ER) | payer MEDICARE ==
[~2020-11-07] VITALS: Ht 167.6 cm; Wt 57.0 kg
[~2020-11-07 12:53] MED LIST changes: -ceFAZolin 2gm in dextrose, iso 50 ML IV ONE; -famotidine 20mg tablet PO ONE; -ringers solution, lacted 1,000 ML IV SCH
[2020-11-07 13:49] LABS: BASOPHILS % (AUTO) 0.3 % (0-1); EOSINOPHILS # (AUTO) 0.2 X10'3 (0-0.9); EOSINOPHILS % (AUTO) 2.1 % (0-6); HEMATOCRIT 27.4 % (35.0-45.0); HEMOGLOBIN 8.9 g/dl (12.0-16.0); LYMPHOCYTES # (AUTO) 1.6 X10'3 (1.1-4.8); LYMPHOCYTES % (AUTO) 14.9 % (21-51); MEAN CORPUSCULAR HEMOGLOBIN 26.5 PG (27.0-31.0); MEAN CORPUSCULAR HGB CONC 32.7 g/dL (33.0-36.5); MEAN CORPUSCULAR VOLUME 81.1 FL (78-98); MEAN PLATELET VOLUME 7.3 FL (7.4-10.4); MONOCYTES # (AUTO) 1.1 X10'3 (0-0.9); NEUTROPHILS # (AUTO) 7.7 X10'3 (1.8-7.7); NEUTROPHILS % (AUTO) 72.7 % (42-75); PLATELET COUNT 212 X10'3 (140-440); RED BLOOD COUNT 3.38 X10'6 (4.20-5.60); RED CELL DISTRIBUTION WIDTH 15.2 % (11.5-14.5); WHITE BLOOD COUNT 10.6 X10'3 (4.5-11.0)
[2020-11-07 14:00] LABS: ALANINE AMINOTRANSFERASE 16 U/L (12-78); ALBUMIN 2.6 G/DL (3.4-5.0); ALBUMIN/GLOBULIN RATIO 0.8 (1.1-1.5); ALKALINE PHOSPHATASE 115 IU/L (46-116); ANION GAP 11 (8-16); ASPARTATE AMINO TRANSFERASE 18 U/L (10-37); BILIRUBIN,TOTAL 0.3 MG/DL (0.1-1.0); BLOOD UREA NITROGEN 12 MG/DL (7-18); BUN/CREATININE RATIO 18.2 (6.6-38.0); CALCIUM 8.3 MG/DL (8.5-10.1); CHLORIDE 105 MMOL/L (99-107); CREATININE 0.66 MG/DL (0.40-0.90); GLUCOSE 102 MG/DL (70-104); POTASSIUM 3.7 MMOL/L (3.5-5.1); SODIUM 139 MMOL/L (135-145); TOTAL CARBON DIOXIDE 23.3 MMOL/L (24-32); TOTAL PROTEIN 5.7 G/DL (6.4-8.2); eGFR 90 ML/MIN
--- NOTE | 2020-11-07 14:01 | NUR ---
blood culture drawn from red port of picc line per patient, right upper arm power picc placed 11/04/20: dressing with dried blood at site
[2020-11-07] MEDS ORDERED: ondansetron/PF 4mg/2ml inj IV ONE (14:15)
[2020-11-07] MEDS ORDERED: normal saline 1000ml 1,000 ML IV ONE (14:15)
[2020-11-07] MEDS ORDERED: ONDA4TAB12 PO (14:34)
--- NOTE | 2020-11-07 15:07 | NUR ---
USING STERILE TECHNIQUE 2 LUMEN POWER PICC DRESSING CHANGED. LARGE AMOUNT OF DRIED BLOOD REMOVED WITH CLORAPREP, ANTI INFECTIVE RING PLACED AT INSERTION SITE, SITE CLEAR, CIRCUMFERENCE 23.5 CM OPSITE DRESSING FROM PIC LINE DRESSING KIT PLACED, IVON TOLERATED WELL
--- NOTE | 2020-11-07 15:07 | NUR ---
ambulating to restroom to provide clean catch urine
[2020-11-07 15:09] VITALS: BP 142/71
--- NOTE | 2020-11-07 15:18 | NUR ---
dr shepherd would like to wait 30 minutes to see if patient's surgeon dr Frances RETURNS HER CALL
[2020-11-07 15:27] LABS: CLARITY,URINE CLEAR (Clear); COLOR,URINE YELLOW (Yellow); GLUCOSE, URINE NEGATIVE (Neg); KETONES,URINE NEGATIVE (Neg); LEUKOCYTE ESTERASE ,URINE NEGATIVE (Neg); NITRITES, URINE NEGATIVE (Neg); OCCULT BLOOD,URINE NEGATIVE (Neg); PH,URINE 7.5 (4.8-8.0); PROTEIN,URINE NEGATIVE (Neg); UA COLLECTION TYPE CLN CATCH MIDSTREAM; UROBILINOGEN,URINE 0.2 E.U/dL (0.2-1.0)
== END 2020-11-07 15:39 | disposition home or self-care (01) ==
LOC: ER 12:54
DX: R50.82 Postprocedural fever (principal); R11.2 Nausea with vomiting, unspecified; M25.512 Pain in left shoulder; M81.0 Age-related osteoporosis without current pathological fracture; E07.9 Disorder of thyroid, unspecified; J45.909 Unspecified asthma, uncomplicated; Z87.440 Personal history of urinary (tract) infections; Z86.14 Personal history of Methicillin resistant Staphylococcus aureus infection; F12.90 Cannabis use, unspecified, uncomplicated; Z72.89 Other problems related to lifestyle; Z90.49 Acquired absence of other specified parts of digestive tract; Z98.890 Other specified postprocedural states; Z88.1 Allergy status to other antibiotic agents; Z88.8 Allergy status to other drugs, medicaments and biological substances; Z79.899 Other long term (current) drug therapy
CPT/HCPCS: 36415; 71045; 80053; 81003; 83605; 84145; 85025; 87040; 96361; 96374; 99284; J2405; J7030

== ENCOUNTER 2021-01-12 08:05 | Outpatient (CLI) | payer MEDICARE ==
[~2021-01-12] VITALS: Ht 167.6 cm; Wt 51.3 kg
[~2021-01-12 08:05] MED LIST changes: +ONDA4TAB12 PO
[2021-01-12] MEDS ORDERED: regadenoson 0.4mg/5ml syringe IV ONE (08:55)
[2021-01-12] MEDS ORDERED: aminophylline 250mg/10ml inj. IV PRN (08:55)
[2021-01-12] MEDS ORDERED: normal saline 500ml IV soln 500 ML IV ONE (08:55)
[2021-01-12] MEDS ORDERED: nitroGLYCERIN 0.4mg SUBLingual tab SL PRN (08:55)
[2021-01-12 09:35] VITALS: BP 116/70
[2021-01-12 09:55] VITALS: BP 99/66
[2021-01-12 09:56] VITALS: BP 83/56
[2021-01-12 09:57] VITALS: BP 109/67
[2021-01-12 09:58] VITALS: BP 110/67
[2021-01-12 09:59] VITALS: BP 104/64
== END 2021-01-12 23:59 | disposition home or self-care (01) ==
LOC: RAD 08:05
PROVIDERS: ATTEND Internal Medicine Cardiovascular Disease
DX: I25.10 Atherosclerotic heart disease of native coronary artery without angina pectoris (principal); I10 Essential (primary) hypertension; E78.5 Hyperlipidemia, unspecified; Z01.810 Encounter for preprocedural cardiovascular examination
CPT/HCPCS: 78452; 93017; A9500; J0280; J2785; J7040

== ENCOUNTER 2021-05-07 12:19 | Emergency (ER) | payer MEDICARE ==
[~2021-05-07] VITALS: Ht 167.6 cm; Wt 49.5 kg
[~2021-05-07 12:19] MED LIST changes: +BUPR-122 PO; -BUPR100T16 PO
[2021-05-07 13:00] VITALS: BP 132/91
[2021-05-07] MEDS ORDERED: HYDROcodone/acetaminophen 10/325mg tab PO ONE (13:10)
[2021-05-07] MEDS ORDERED: HYDR-3972 PO (14:29)
== END 2021-05-07 15:00 | disposition home or self-care (01) ==
LOC: ER 12:20
DX: S42.291A Other displaced fracture of upper end of right humerus, initial encounter for closed fracture (principal); M19.011 Primary osteoarthritis, right shoulder; M25.511 Pain in right shoulder; J45.909 Unspecified asthma, uncomplicated; E03.9 Hypothyroidism, unspecified; F41.9 Anxiety disorder, unspecified; F12.90 Cannabis use, unspecified, uncomplicated; F31.9 Bipolar disorder, unspecified; Z87.440 Personal history of urinary (tract) infections; Z90.89 Acquired absence of other organs; Z86.14 Personal history of Methicillin resistant Staphylococcus aureus infection; Z90.49 Acquired absence of other specified parts of digestive tract; Z98.890 Other specified postprocedural states; Z72.89 Other problems related to lifestyle; Z88.1 Allergy status to other antibiotic agents; Z88.8 Allergy status to other drugs, medicaments and biological substances; Z79.899 Other long term (current) drug therapy; W19.XXXA Unspecified fall, initial encounter; Y93.89 Activity, other specified; Y92.89 Other specified places as the place of occurrence of the external cause; Y99.8 Other external cause status
CPT/HCPCS: 29105; 73030; 99283

== ENCOUNTER 2021-07-27 12:00 | Outpatient (CLI) | payer MEDICARE ==
[2021-07-27 11:32] LABS: ALBUMIN 3.6 G/DL (3.4-5.0); ALBUMIN/GLOBULIN RATIO 1.3 (1.1-1.5); BLOOD UREA NITROGEN 16 MG/DL (7-18); BUN/CREATININE RATIO 23.5 (6.6-38.0); CALCIUM 8.9 MG/DL (8.5-10.1); CHLORIDE 107 MMOL/L (99-107); CREATININE 0.68 MG/DL (0.40-0.90); PRE OP ALT 31 U/L (30-65); PRE OP ANION GAP 9 (8-16); PRE OP AST 22 U/L (10-37); PRE OP BILIRUB, TOTAL 0.3 MG/DL (0.0-1.0); PRE OP GLUCOSE 103 MG/DL (70-104); PRE OP POTASSIUM 4.1 MMOL/L (3.4-5.1); PRE OP SODIUM 142 MMOL/L (135-145); TOTAL PROTEIN 6.4 G/DL (6.4-8.2); eGFR 86 ML/MIN
[~2021-07-27 12:00] MED LIST changes: +AMOX-445 PO; +CHLO-188 PO; +FLUO40CA10 PO; +GABA-530 PO; +GLUCOSE TAB PO; +[UNRECOGNIZED DRUG - OTHER] SQ
[2021-07-27 13:18] LABS: BASOPHILS % (AUTO) 0.4 % (0-1); EOSINOPHILS # (AUTO) 0.2 X10'3 (0-0.9); EOSINOPHILS % (AUTO) 3.2 % (0-6); LYMPHOCYTES % (AUTO) 17.3 % (21-51); MEAN CORPUSCULAR HEMOGLOBIN 30.5 PG (27.0-31.0); MEAN CORPUSCULAR HGB CONC 33.2 g/dL (33.0-36.5); MEAN CORPUSCULAR VOLUME 91.8 FL (78-98); MEAN PLATELET VOLUME 7.9 FL (7.4-10.4); MONOCYTES # (AUTO) 0.5 X10'3 (0-0.9); MONOCYTES % (AUTO) 8.3 % (2-12); NEUTROPHILS # (AUTO) 3.9 X10'3 (1.8-7.7); NEUTROPHILS % (AUTO) 70.8 % (42-75); PRE OP HEMATOCRIT 39.2 % (35.0-45.0); PRE OP PLATELET COUNT 246 X10'3 (140-440); RED BLOOD COUNT 4.27 X10'6 (4.20-5.60); RED CELL DISTRIBUTION WIDTH 15.6 % (11.5-14.5)
== END 2021-07-27 23:59 | disposition home or self-care (01) ==
LOC: PRE-OP 12:00 → EDSTATUS 08-04 09:45
PROVIDERS: ATTEND Orthopaedic Surgery
DX: Z01.818 Encounter for other preprocedural examination (principal); M19.011 Primary osteoarthritis, right shoulder; J45.909 Unspecified asthma, uncomplicated; G62.9 Polyneuropathy, unspecified; E03.9 Hypothyroidism, unspecified; K21.9 Gastro-esophageal reflux disease without esophagitis; F41.9 Anxiety disorder, unspecified; F90.9 Attention-deficit hyperactivity disorder, unspecified type; F31.9 Bipolar disorder, unspecified; M81.0 Age-related osteoporosis without current pathological fracture; Z88.1 Allergy status to other antibiotic agents; Z20.822 Contact with and (suspected) exposure to COVID-19; Z79.899 Other long term (current) drug therapy
CPT/HCPCS: 36415; 80053; 84443; 85025; 87081; 93005; U0003; U0005

== ENCOUNTER 2021-08-25 06:56 | Inpatient (IN) | payer MEDICARE ==
[~2021-08-25] VITALS: Ht 167.6 cm; Wt 50.3 kg
[2021-08-25] VITALS (12 sets, daily range): BP systolic 91–130; BP diastolic 58–89
[~2021-08-25 06:56] MED LIST changes: -CHLO-188 PO; +CHLO4TAB36 PO; +CHOL100017 PO; +DEXT1TAB15 PO; -GLUCOSE TAB PO; +MAGN30TA2 PO; -MAGN64TA8 PO; -ONDA4TAB12 PO; +POLY119P2 PO; -SERT-434 PO; +clindamycin-Cleocin 900mg/D5W 50 ML IV ONE; +famotidine 20mg tablet PO ONE; +ringers solution, lacted 1,000 ML IV SCH; +tranexamic acid inj. 500 MG in normal saline 100ml IV soln 100 ML IV ONE
[2021-08-25 08:21] LABS: BASOPHILS % (AUTO) 0.3 % (0-1); EOSINOPHILS # (AUTO) 0.2 X10'3 (0-0.9); EOSINOPHILS % (AUTO) 4.5 % (0-6); LYMPHOCYTES # (AUTO) 1.1 X10'3 (1.1-4.8); MEAN CORPUSCULAR HEMOGLOBIN 30.4 PG (27.0-31.0); MEAN CORPUSCULAR HGB CONC 33.3 g/dL (33.0-36.5); MEAN CORPUSCULAR VOLUME 91.2 FL (78-98); MEAN PLATELET VOLUME 7.1 FL (7.4-10.4); MONOCYTES # (AUTO) 0.5 X10'3 (0-0.9); MONOCYTES % (AUTO) 9.7 % (2-12); NEUTROPHILS # (AUTO) 3.1 X10'3 (1.8-7.7); NEUTROPHILS % (AUTO) 63.5 % (42-75); PRE OP HEMATOCRIT 36.8 % (35.0-45.0); PRE OP HEMOGLOBIN 12.3 g/dL (12.0-16.0); PRE OP PLATELET COUNT 215 X10'3 (140-440); RED BLOOD COUNT 4.03 X10'6 (4.20-5.60); RED CELL DISTRIBUTION WIDTH 14.2 % (11.5-14.5)
[2021-08-25] MEDS ORDERED: vancomycin 1,000mg inj ONE (08:32)
[2021-08-25 08:35] LABS: ALBUMIN 3.3 G/DL (3.4-5.0); ALBUMIN/GLOBULIN RATIO 1.1 (1.1-1.5); ALKALINE PHOSPHATASE 108 IU/L (46-116); BLOOD UREA NITROGEN 13 MG/DL (7-18); BUN/CREATININE RATIO 24.5 (6.6-38.0); CALCIUM 8.6 MG/DL (8.5-10.1); CHLORIDE 111 MMOL/L (99-107); CREATININE 0.53 MG/DL (0.40-0.90); PRE OP ALT 29 U/L (30-65); PRE OP ANION GAP 9 (8-16); PRE OP AST 24 U/L (10-37); PRE OP BILIRUB, TOTAL 0.3 MG/DL (0.0-1.0); PRE OP GLUCOSE 108 MG/DL (70-104); PRE OP POTASSIUM 3.7 MMOL/L (3.4-5.1); PRE OP SODIUM 142 MMOL/L (135-145); TOTAL CARBON DIOXIDE 22.3 MMOL/L (24-32); TOTAL PROTEIN 6.2 G/DL (6.4-8.2); eGFR > 90 ML/MIN
[2021-08-25] MEDS ORDERED: sevoflurane 250ml liquid IH ONE (12:42)
[2021-08-25] MEDS ORDERED: MIDAZolam 1 MG/ML 5ML VIAL ONE (12:53)
[2021-08-25] MEDS ORDERED: FENTANYL CITRATE/PF 50 MCG/1 ML VIAL ONE (12:53)
[2021-08-25] MEDS ORDERED: ROPIVAcaine 0.5% (5mg/ml) 30ml vial ONE (12:56)
[2021-08-25] MEDS ORDERED: tobramycin 40mg/ml inj ONE (14:03)
[2021-08-25] MEDS: tobramycin sulfate 1.2gm vial IR ONE ×2 (14:24→15:33)
[2021-08-25] MEDS ORDERED: ROPIVAcaine 0.2% (10 MG/5 ML) BOLUS INJECTION INTERSCALE PRN (14:45)
[2021-08-25] MEDS ORDERED: meperidine/PF 25mg/ml syringe IV PRN ×3 (14:45)
[2021-08-25] MEDS ORDERED: morphine 4 MG/ML inj SYRINge IV PRN (14:45)
[2021-08-25] MEDS ORDERED: ondansetron/PF 4mg/2ml inj IV PRN ×2 (14:45→15:15)
[2021-08-25] MEDS ORDERED: ROPIVAcaine 0.2%/PF PUMP/bolus 545 ML INTERSCALE SCH (14:45)
[2021-08-25] MEDS ORDERED: morphine 2 MG/ML inj. syringe IV PRN (14:45)
[2021-08-25] MEDS ORDERED: proCHLORperazine 10 MG/2 ml inj IV PRN (14:45)
[2021-08-25] MEDS ORDERED: ringers solution, lacted 1,000 ML IV SCH (14:45)
[2021-08-25] MEDS ORDERED: oxyCODONE IR 5mg (immed. release) tablet PO PRN (15:15)
[2021-08-25] MEDS ORDERED: HYDROmorphone inj. 0.5 MG/0.5 ML DISP.SYRIN IV PRN (15:15)
[2021-08-25] MEDS ORDERED: magnesium hydroxide 30ml (MOM) UD suspension PO PRN (15:15)
[2021-08-25] MEDS: potassium cl 20mEq in 1/2 NS 1,000 ML IV SCH (15:15)
[2021-08-25] MEDS ORDERED: bisacodyl 10mg suppository rectal RC PRN (15:15)
[2021-08-25] MEDS ORDERED: diphenhydrAMINE 25mg capsule PO PRN ×2 (15:15)
[2021-08-25] MEDS ORDERED: HYDROmorphone 1 mg/ml syringe IV PRN (15:15)
[2021-08-25] MEDS ORDERED: acetaminophen 325mg tablet PO PRN (15:15)
[2021-08-25] MEDS ORDERED: propofol inj 20 ML IV ONE (15:20)
[2021-08-25] MEDS ORDERED: ePHEDrine 50MG/ML INJ. ONE (15:20)
--- NOTE | 2021-08-25 15:23 | NUR ---
Received from OR via BED , accompanied by Anesthesiologist DR DOMÍNGUEZ and report given by Anesthesiolgist. VSS. SLING AND POWDER PACK ON RIGHT SHOULDER. PATIENT STATES PAINFUL WILL MEDICATE. 18 GAUGE IN LEFT WRIST. XRAY TAKEN. ROSANGELA PEREZ. SCD'S ON. Addendum: 08/25/21 at 1551 by Anisha Carr RN Amended: Links added.
[2021-08-25] MEDS: CLINDAmcin 900mg/NS 50ml IVPB 50 ML IV SCH (16:00)
--- NOTE | 2021-08-25 16:50 | NUR ---
Received pt to floor. Pt. A&Ox4. c/o 03/21 "epigastric pain". VS taken. SBP low 90s but MAP ok and pt. just received MS dose. Other VS WNL. No bleeding noted on shoulder dressing. RA in sling, supported by pillow. Post-op VS started Pt. refused 2 RN skin check at this time. LR running at 100ml/hr.
[2021-08-25] MEDS ORDERED: sennosides 8.6mg tablet PO PRN (17:05)
[2021-08-25] MEDS ORDERED: nitroGLYCERIN 0.4mg SUBLingual tab SL PRN (17:05)
[2021-08-25] MEDS ORDERED: chlorpheniramine 4mg tablet PO PRN ×4 (17:05→21:40)
[2021-08-25] MEDS ORDERED: non-formulary drug (Vitamin B Complex (B Complex) 1 EACH) PO SCH (17:05)
[2021-08-25] MEDS ORDERED: [UNRECOGNIZED DRUG - OTHER] PO PRN (17:05)
[2021-08-25] MEDS ORDERED: Melatonin 3mg tablet PO PRN (17:05)
[2021-08-25] MEDS ORDERED: DEXTROSE PO PRN (17:05)
[2021-08-25] MEDS ORDERED: docusate sod 250mg capsule PO PRN (17:05)
[2021-08-25] MEDS ORDERED: mag hydrox/Alum hydrox/simeth 30ml oral suspension PO PRN (17:10)
[2021-08-25] MEDS ORDERED: tranexamic acid inj. 500 MG in normal saline 100ml IV soln 95 ML IV ONE (18:00)
--- NOTE | 2021-08-25 18:23 | NUR ---
Gave report to Ivanna LUNA.
[2021-08-25] MEDS ORDERED: clonazePAM 1mg tablet PO PRN (18:35)
--- NOTE | 2021-08-25 18:43 | NUR ---
PATIENT HAS MET ALL CRITERIA FOR TRANSFER TO THE SURGICAL FLOOR. VSS. DRESSINGS INTACT. BED LOW, CALL LIGHT PRESENT AND 2 RAILS UP. RN PRESENT TO ACCEPT CARE OF PATIENT AND REPORT HAS BEEN CALLED. ALL QUESTIONS ANSWERED TO ACCEPTING RN. BELONGINGS SENT WITH PATIENT. Addendum: 08/25/21 at 1843 by Gonsalo Salgado - CHERYL RN Amended: Links added.
[2021-08-25] MEDS ORDERED: polyethylene glycol 3350 17gm powd pack PO PRN (18:55)
[2021-08-25] MEDS: buPROPion 100mg tablet PO SCH (20:00)
[2021-08-25] MEDS ORDERED: MAGNESIUM 128 MG PO SCH (21:00)
[2021-08-25] MEDS: acetaminophen 325mg tablet PO SCH (21:16)
[2021-08-25] MEDS: gabapentin 300mg capsule PO SCH (21:17)
[2021-08-25] MEDS: sennosides 8.6mg tablet PO SCH (21:17)
[2021-08-25] MEDS: pantoprazole 40mg Tablet.DR PO SCH (21:18)
[2021-08-25] MEDS: gabapentin 100mg capsule PO SCH (21:18)
[2021-08-25] MEDS: prednisoLONE acetate 1% ophth susp 5ml LEFTEYE SCH (21:19)
[2021-08-25] MEDS: oxybutynin 5mg tablet PO SCH (21:19)
[2021-08-25] MEDS: topiramate 100mg tablet PO SCH (21:20)
[2021-08-26] VITALS: BP 115/74
[2021-08-26] MEDS: potassium cl 20mEq in 1/2 NS 1,000 ML IV SCH ×3 (01:23→15:15)
[2021-08-26] MEDS: CLINDAmcin 900mg/NS 50ml IVPB 50 ML IV SCH ×2 (01:23→08:23)
[2021-08-26] MEDS: oxyCODONE IR 5mg (immed. release) tablet PO PRN ×3 (01:27→20:52)
[2021-08-26] MEDS: acetaminophen 325mg tablet PO SCH ×4 (01:28→20:32)
[2021-08-26 04:11] VITALS: BP 126/84
[2021-08-26 06:07] LABS: BASOPHILS % (AUTO) 0.1 % (0-1); EOSINOPHILS % (AUTO) 0.1 % (0-6); HEMATOCRIT 34.9 % (35.0-45.0); HEMOGLOBIN 11.7 g/dl (12.0-16.0); LYMPHOCYTES # (AUTO) 0.5 X10'3 (1.1-4.8); MEAN CORPUSCULAR HEMOGLOBIN 30.7 PG (27.0-31.0); MEAN CORPUSCULAR HGB CONC 33.6 g/dL (33.0-36.5); MEAN CORPUSCULAR VOLUME 91.4 FL (78-98); MEAN PLATELET VOLUME 7.4 FL (7.4-10.4); MONOCYTES # (AUTO) 0.9 X10'3 (0-0.9); MONOCYTES % (AUTO) 8.5 % (2-12); NEUTROPHILS # (AUTO) 8.7 X10'3 (1.8-7.7); NEUTROPHILS % (AUTO) 86.3 % (42-75); PLATELET COUNT 194 X10'3 (140-440); RED BLOOD COUNT 3.82 X10'6 (4.20-5.60); RED CELL DISTRIBUTION WIDTH 14.5 % (11.5-14.5); WHITE BLOOD COUNT 10.1 X10'3 (4.5-11.0)
[2021-08-26 07:21] LABS: ANION GAP 13 (8-16); CHLORIDE 107 MMOL/L (99-107); POTASSIUM 3.9 MMOL/L (3.5-5.1); SODIUM 142 MMOL/L (135-145); TOTAL CARBON DIOXIDE 22.1 MMOL/L (24-32)
[2021-08-26 07:43] VITALS: BP 134/84
[2021-08-26] MEDS: CALCIUM CITRATE 1200 MG PO SCH ×2 (08:00→20:00)
[2021-08-26] MEDS: methylphenidate 5mg tablet PO SCH ×2 (08:22→13:03)
[2021-08-26] MEDS: topiramate 100mg tablet PO SCH ×2 (08:23→20:32)
[2021-08-26] MEDS: gabapentin 100mg capsule PO SCH ×3 (08:23→20:30)
[2021-08-26] MEDS: FLUoxetine 20mg capsule PO SCH (08:23)
[2021-08-26] MEDS: levoTHYROXINE 100mcg tablet PO SCH (08:23)
[2021-08-26] MEDS: oxybutynin 5mg tablet PO SCH ×3 (08:24→20:31)
[2021-08-26] MEDS: pantoprazole 40mg Tablet.DR PO SCH ×2 (08:24→20:31)
[2021-08-26] MEDS: gabapentin 300mg capsule PO SCH ×2 (08:24→13:03)
[2021-08-26] MEDS: multivitamins, therapeutics tablet PO SCH (08:24)
[2021-08-26] MEDS: aspirin 325mg tablet PO SCH (08:25)
[2021-08-26] MEDS: prednisoLONE acetate 1% ophth susp 5ml LEFTEYE SCH ×2 (08:25→20:25)
[2021-08-26] MEDS: amoxicillin 250mg capsule PO SCH ×2 (08:28→20:29)
[2021-08-26] MEDS: buPROPion 100mg tablet PO SCH ×2 (08:29→20:30)
[2021-08-26 11:00] VITALS: BP 129/79
--- NOTE | 2021-08-26 11:54 | NUR ---
Noted pt with a low BMI of 17.9 using scaled wt of 50.3 kg though pt denied wt loss or decreased appetite per malnutrition risk screen with RN. Currently on a regular diet and documented with 50% PO intake first two meals. Pt s/p reverse right TSA POD #1. Written protein nutrition therapy education with [employer] coupons and RD contact information placed in patient's chart. Will remain available. Addendum: 08/26/21 at [address] Amended: Links added.
[2021-08-26 18:00] VITALS: BP 123/80
--- NOTE | 2021-08-26 18:21 | NUR ---
GAVE REPORT TO SERGE LUNA.
--- NOTE | 2021-08-26 18:50 | NUR ---
Patient in room [facility]. I have received report from CHERYL Navarrete and had the opportunity to ask questions and assume patient care.
[2021-08-26] MEDS: sennosides 8.6mg tablet PO SCH (20:30)
[2021-08-26] MEDS: celeCOXIB 100mg capsule PO SCH (20:32)
[2021-08-26] MEDS ORDERED: magnesium Cl slow-release 64mg tablet PO SCH (21:00)
[2021-08-27] VITALS: BP 139/70
[2021-08-27] MEDS: potassium cl 20mEq in 1/2 NS 1,000 ML IV SCH (01:24)
[2021-08-27] MEDS: acetaminophen 325mg tablet PO SCH ×2 (02:08→08:53)
[2021-08-27 06:19] LABS: BASOPHILS % (AUTO) 0.2 % (0-1); EOSINOPHILS # (AUTO) 0.2 X10'3 (0-0.9); EOSINOPHILS % (AUTO) 2.5 % (0-6); HEMATOCRIT 31.5 % (35.0-45.0); HEMOGLOBIN 10.7 g/dl (12.0-16.0); LYMPHOCYTES # (AUTO) 1.4 X10'3 (1.1-4.8); LYMPHOCYTES % (AUTO) 16.2 % (21-51); MEAN CORPUSCULAR HEMOGLOBIN 31.4 PG (27.0-31.0); MEAN CORPUSCULAR VOLUME 92.3 FL (78-98); MEAN PLATELET VOLUME 7.2 FL (7.4-10.4); MONOCYTES # (AUTO) 1.1 X10'3 (0-0.9); MONOCYTES % (AUTO) 12.8 % (2-12); NEUTROPHILS # (AUTO) 5.9 X10'3 (1.8-7.7); NEUTROPHILS % (AUTO) 68.3 % (42-75); PLATELET COUNT 163 X10'3 (140-440); RED BLOOD COUNT 3.41 X10'6 (4.20-5.60); RED CELL DISTRIBUTION WIDTH 14.6 % (11.5-14.5); WHITE BLOOD COUNT 8.6 X10'3 (4.5-11.0)
--- NOTE | 2021-08-27 06:42 | NUR ---
Patient in room [facility]. I have received report from CHERYL Fiore and had the opportunity to ask questions and assume patient care.
[2021-08-27 07:00] VITALS: BP 130/77
[2021-08-27 08:00] VITALS: BP 130/77
[2021-08-27] MEDS: oxybutynin 5mg tablet PO SCH (08:52)
[2021-08-27] MEDS: aspirin 325mg tablet PO SCH (08:53)
[2021-08-27] MEDS: amoxicillin 250mg capsule PO SCH (08:53)
[2021-08-27] MEDS: FLUoxetine 20mg capsule PO SCH (08:53)
[2021-08-27] MEDS: topiramate 100mg tablet PO SCH (08:54)
[2021-08-27] MEDS: multivitamins, therapeutics tablet PO SCH (08:54)
[2021-08-27] MEDS: gabapentin 100mg capsule PO SCH (08:54)
[2021-08-27] MEDS: buPROPion 100mg tablet PO SCH (08:54)
[2021-08-27] MEDS: celeCOXIB 100mg capsule PO SCH (08:54)
[2021-08-27] MEDS: pantoprazole 40mg Tablet.DR PO SCH (08:54)
[2021-08-27] MEDS: prednisoLONE acetate 1% ophth susp 5ml LEFTEYE SCH (09:04)
[2021-08-27] MEDS: levoTHYROXINE 100mcg tablet PO SCH (09:06)
[2021-08-27] MEDS ORDERED: acetaminophen 325mg tablet PO PRN (15:15)
== END 2021-08-27 13:33 | disposition home health service (06) | DRG 483 ==
LOC: UNDOADMIN 06:56 → PAS IN 06:56 → SUR 3N 16:45
PROVIDERS: ADMIT Orthopaedic Surgery; ATTEND Orthopaedic Surgery
PROC: 3E0T3BZ Introduction of Anesthetic Agent into Peripheral Nerves and Plexi, Percutaneous Approach (ICD-10-PCS; 2021-08-25)
PROC: 0RRJ00Z Replacement of Right Shoulder Joint with Reverse Ball and Socket Synthetic Substitute, Open Approach (ICD-10-PCS; principal; 2021-08-25 12:42)
DX: M19.011 Primary osteoarthritis, right shoulder (principal); Z20.822 Contact with and (suspected) exposure to COVID-19; Z79.899 Other long term (current) drug therapy; M75.101 Unspecified rotator cuff tear or rupture of right shoulder, not specified as traumatic
CPT/HCPCS: 36415; 73020; 80051; 80053; 84443; 85025; 87635; 97110; 97116; 97162; 97530; A4565; A4618; A7000; C1776; C9250; G0378; J2250; J2270; J2704; J2795; J3010; J3260; J3370; J3480; J3490; J7120

== ENCOUNTER 2023-03-30 09:02 | Outpatient (CLI) | payer MEDICARE ==
[2023-03-30] VITALS (7 sets, daily range): BP systolic 93–111; BP diastolic 46–65; PULSE 66–89; RESP 18; O2SAT 98
[~2023-03-30] VITALS: Ht 167.6 cm; Wt 49.4 kg
[~2023-03-30 09:02] MED LIST changes: +CLON-852 PO; -CLON2TAB PO; +DOCU-395 PO; -DOCU250C96 PO; -clindamycin-Cleocin 900mg/D5W 50 ML IV ONE; -famotidine 20mg tablet PO ONE; -ringers solution, lacted 1,000 ML IV SCH; -tranexamic acid inj. 500 MG in normal saline 100ml IV soln 100 ML IV ONE
[2023-03-30] MEDS ORDERED: regadenoson 0.4mg/5ml syringe IV ONE (09:50)
[2023-03-30] MEDS ORDERED: nitroGLYCERIN 0.4mg SUBLingual tab SL PRN (09:50)
[2023-03-30] MEDS ORDERED: aminophylline 250mg/10ml inj. IV PRN (09:50)
== END 2023-03-30 23:59 | disposition home or self-care (01) ==
LOC: RAD 09:02
PROVIDERS: ATTEND Internal Medicine Cardiovascular Disease
DX: R07.9 Chest pain, unspecified (principal); R53.83 Other fatigue
CPT/HCPCS: 78452; 93017; A9500; J2785; J0280

== ENCOUNTER 2023-08-10 06:00 | Day surgery (SDC) | payer MEDICARE ==
[2023-08-10] VITALS (13 sets, daily range): BP systolic 105–126; BP diastolic 68–94; PULSE 70–97; RESP 12–18; TEMP 98.2; O2SAT 96–98
[~2023-08-10] VITALS: Ht 167.6 cm; Wt 50.0 kg
[~2023-08-10 06:00] MED LIST changes: -OXYB5TAB16 PO; +OXYB5TAB21 PO
[2023-08-10] MEDS: normal saline 1,000 ML IV SCH (06:30)
[2023-08-10 07:15] LABS: BASOPHILS % (AUTO) 0.3 % (0-1); EOSINOPHILS # (AUTO) 0.2 X10'3 (0-0.9); EOSINOPHILS % (AUTO) 2.9 % (0-6); HEMATOCRIT 39.9 % (35.0-45.0); HEMOGLOBIN 13.7 g/dl (12.0-16.0); LYMPHOCYTES # (AUTO) 1.1 X10'3 (1.1-4.8); LYMPHOCYTES % (AUTO) 18.4 % (21-51); MEAN CORPUSCULAR HEMOGLOBIN 31.9 PG (27.0-31.0); MEAN CORPUSCULAR HGB CONC 34.4 g/dL (33.0-36.5); MEAN CORPUSCULAR VOLUME 92.8 FL (78-98); MEAN PLATELET VOLUME 7.2 FL (7.4-10.4); MONOCYTES # (AUTO) 0.5 X10'3 (0-0.9); MONOCYTES % (AUTO) 8.8 % (2-12); NEUTROPHILS # (AUTO) 4.2 X10'3 (1.8-7.7); NEUTROPHILS % (AUTO) 69.6 % (42-75); PLATELET COUNT 186 X10'3 (140-440); RED CELL DISTRIBUTION WIDTH 13.4 % (11.5-14.5)
[2023-08-10 07:27] LABS: PROTHROMBIN TIME 11.1 SECONDS (9.0-12.0)
[2023-08-10 07:30] LABS: ALBUMIN 3.3 G/DL (3.4-5.0); ANION GAP 8 (8-16); BLOOD UREA NITROGEN 27 MG/DL (7-18); BUN/CREATININE RATIO 42.2 (10.0-20.0); CALCIUM 8.3 MG/DL (8.5-10.1); CHLORIDE 108 MMOL/L (99-107); CREATININE 0.64 MG/DL (0.40-0.90); GLUCOSE 96 MG/DL (70-104); POTASSIUM 3.8 MMOL/L (3.5-5.1); SODIUM 139 MMOL/L (135-145); TOTAL CARBON DIOXIDE 23.1 MMOL/L (24-32); eCRCL 65 ML/MIN; eGFR > 90 ML/MIN
[2023-08-10] MEDS ORDERED: verapamil 2.5 mg/ml inj IV ONE (07:32)
[2023-08-10] MEDS ORDERED: LIDOcaine 1% (10mg/ml) 2ml vial ONE (07:32)
[2023-08-10] MEDS ORDERED: nitroGLYCERIN 500mcg/5mL D5W 5 ML IV ONE (07:33)
[2023-08-10] MEDS ORDERED: iohexol 350 MG/ML 50ML vial IV ONE (07:33)
[2023-08-10] MEDS ORDERED: iohexol 350MG/ML 100ml bottle IV ONE (07:33)
[2023-08-10] MEDS ORDERED: midazolam 1 mg/ML 2ml injection ONE (07:33)
[2023-08-10] MEDS ORDERED: heparin 1,000unit/ml 10ml vial 10 ML ONE (07:33)
[2023-08-10] MEDS ORDERED: fentaNYL/PF 50MCG/1 ML 2ML syringe ONE (07:33)
[2023-08-10] MEDS ORDERED: CARV6.253 PO (07:37)
[2023-08-10] MEDS ORDERED: METH20TA40 PO (07:37)
[2023-08-10] MEDS ORDERED: METH-350 PO (07:37)
[2023-08-10] MEDS ORDERED: CARB1TAB36 PO (07:39)
[2023-08-10] MEDS ORDERED: CYCL-1 PO (07:39)
[2023-08-10] MEDS ORDERED: ONDA-103 PO (07:39)
[2023-08-10] MEDS ORDERED: METO10TA3 PO (07:39)
[2023-08-10] MEDS: diphenhydrAMINE 25mg capsule PO PRN (07:44)
[2023-08-10] MEDS: LORazepam 0.5 MG tablet PO PRN (07:44)
[2023-08-10] MEDS ORDERED: LIDOcaine 1% 30ml preserv. free vial ONE (08:20)
[2023-08-10] MEDS ORDERED: HYDROcodone/acetaminophen 5mg/325mg tablet PO PRN (09:40)
[2023-08-10] MEDS: HYDROcodone/acetaminophen 10/325mg tab PO PRN (10:37)
== END 2023-08-10 15:00 | disposition home or self-care (01) ==
LOC: SSTAY O 06:00
PROVIDERS: ATTEND Internal Medicine Cardiovascular Disease
DX: R94.39 Abnormal result of other cardiovascular function study (principal); R07.9 Chest pain, unspecified; R53.83 Other fatigue; R06.00 Dyspnea, unspecified; I10 Essential (primary) hypertension; E78.5 Hyperlipidemia, unspecified; K21.9 Gastro-esophageal reflux disease without esophagitis; F43.10 Post-traumatic stress disorder, unspecified; F41.9 Anxiety disorder, unspecified; F32.A Depression, unspecified; J45.909 Unspecified asthma, uncomplicated; M81.0 Age-related osteoporosis without current pathological fracture; Z79.1 Long term (current) use of non-steroidal anti-inflammatories (NSAID); Z79.890 Hormone replacement therapy; Z90.49 Acquired absence of other specified parts of digestive tract; Z90.89 Acquired absence of other organs; Z98.84 Bariatric surgery status; Z98.890 Other specified postprocedural states; Z88.1 Allergy status to other antibiotic agents; Z88.8 Allergy status to other drugs, medicaments and biological substances
CPT/HCPCS: 36415; 76937; 80048; 85025; 85610; 93005; 93458; 99152; 99153; J1644; J2250; J3010; J3490; J7030; Q0163; Q9967; A4314; A4663; A6258; C1725

== ENCOUNTER 2024-01-27 12:11 | Emergency (ER) | payer MEDICARE ==
[~2024-01-27] VITALS: Ht 167.6 cm; Wt 53.3 kg
[~2024-01-27 12:11] MED LIST changes: -AMOX-445 PO; +CARB1TAB36 PO; +CARV6.253 PO; -CHLO4TAB36 PO; +CYCL-1 PO; +METH-350 PO; -METH10TA4 PO; +METH20TA40 PO; +METO10TA3 PO; +ONDA-103 PO
[2024-01-27 12:15] VITALS: TEMP 98.4
[2024-01-27] MEDS: HYDROcodone/acetaminophen 10/325mg tab PO ONE (14:00)
[2024-01-27 15:00] VITALS: BP 129/82; PULSE 72; RESP 16; O2SAT 98
[2024-01-27] MEDS ORDERED: HYDR-3965 PO (15:02)
== END 2024-01-27 15:29 | disposition home or self-care (01) ==
LOC: ER 12:12
DX: S22.31XA Fracture of one rib, right side, initial encounter for closed fracture (principal); R05.9 Cough, unspecified; J45.909 Unspecified asthma, uncomplicated; E03.9 Hypothyroidism, unspecified; F41.9 Anxiety disorder, unspecified; F32.A Depression, unspecified; F12.90 Cannabis use, unspecified, uncomplicated; F10.90 Alcohol use, unspecified, uncomplicated; Z90.49 Acquired absence of other specified parts of digestive tract; Z98.890 Other specified postprocedural states; Z88.1 Allergy status to other antibiotic agents; Z88.8 Allergy status to other drugs, medicaments and biological substances; Z79.899 Other long term (current) drug therapy; Z79.52 Long term (current) use of systemic steroids; W18.39XA Other fall on same level, initial encounter; Y93.89 Activity, other specified; Y92.89 Other specified places as the place of occurrence of the external cause; Y99.8 Other external cause status
CPT/HCPCS: 71046; 71250; 99284

== ENCOUNTER 2024-02-09 15:12 | Inpatient (IN) | payer MEDICARE ==
[~2024-02-09] VITALS: Ht 165.1 cm; Wt 55.5 kg
[2024-02-09] MEDS: normal saline 1000ML IV soln IVB ONE (16:27)
[2024-02-09 16:48] LABS: BASOPHILS % (AUTO) 0.1 % (0-1); EOSINOPHILS # (AUTO) 0.4 X10'3 (0-0.9); EOSINOPHILS % (AUTO) 3.9 % (0-6); HEMATOCRIT 38.5 % (35.0-45.0); LYMPHOCYTES % (AUTO) 8.9 % (21-51); MEAN CORPUSCULAR HEMOGLOBIN 31.5 PG (27.0-31.0); MEAN CORPUSCULAR HGB CONC 33.9 g/dL (33.0-36.5); MEAN PLATELET VOLUME 6.7 FL (7.4-10.4); MONOCYTES # (AUTO) 0.8 X10'3 (0-0.9); MONOCYTES % (AUTO) 7.2 % (2-12); NEUTROPHILS # (AUTO) 8.9 X10'3 (1.8-7.7); NEUTROPHILS % (AUTO) 79.9 % (42-75); PLATELET COUNT 375 X10'3 (140-440); RED BLOOD COUNT 4.13 X10'6 (4.20-5.60); RED CELL DISTRIBUTION WIDTH 13.4 % (11.5-14.5); WHITE BLOOD COUNT 11.2 X10'3 (4.5-11.0)
[2024-02-09 16:56] LABS: ALBUMIN 3.1 G/DL (3.4-5.0); ANION GAP 12 (8-16); BLOOD UREA NITROGEN 27 MG/DL (7-18); BUN/CREATININE RATIO 38.6 (10.0-20.0); CALCIUM 9.1 MG/DL (8.5-10.1); CHLORIDE 102 MMOL/L (99-107); GLUCOSE 99 MG/DL (70-104); POTASSIUM 4.4 MMOL/L (3.5-5.1); SODIUM 137 MMOL/L (135-145); TOTAL CARBON DIOXIDE 23.3 MMOL/L (24-32); eCRCL 65 ML/MIN; eGFR 83 ML/MIN
[2024-02-09 17:37] LABS: BILIRUBIN,URINE NEGATIVE (Neg); CLARITY,URINE CLEAR (Clear); COLOR,URINE YELLOW (Yellow); GLUCOSE, URINE NEGATIVE (Neg); KETONES,URINE NEGATIVE (Neg); LEUKOCYTE ESTERASE ,URINE TRACE (Neg); NITRITES, URINE NEGATIVE (Neg); OCCULT BLOOD,URINE NEGATIVE (Neg); PH,URINE 7.5 (4.8-8.0); PROTEIN,URINE NEGATIVE (Neg); UROBILINOGEN,URINE 0.2 E.U/dL (0.2-1.0)
[2024-02-09 17:43] LABS: UA COLLECTION TYPE NON-SPECIFIED
[2024-02-09 17:47] LABS: BACTERIA,URINE FEW /HPF (Neg); SQUAMOUS EPITHELIAL CELL,UR FEW /LPF (FEW)
[2024-02-09] MEDS ORDERED: magnesium hydroxide 30ml (MOM) UD suspension PO PRN (18:25)
[2024-02-09] MEDS ORDERED: mag hydrox/Alum hydrox/simeth 30ml oral suspension PO PRN (18:25)
[2024-02-09] MEDS ORDERED: magnesium sulf-water 4G/100mL 100 ML IV PRN (18:25)
[2024-02-09] MEDS ORDERED: acetaminophen 325mg tablet PO PRN (18:25)
[2024-02-09] MEDS ORDERED: ondansetron/PF 4mg/2ml inj IV PRN (18:25)
[2024-02-09] MEDS ORDERED: potassium Cl 20 mEq SR tablet PO PRN ×2 (18:25)
[2024-02-09] MEDS ORDERED: potassium Cl 40MEQ/1/2NS 520ml 520 ML IV PRN (18:25)
[2024-02-09] MEDS ORDERED: magnesium Cl slow-release 64mg tablet PO PRN (18:25)
[2024-02-09] MEDS ORDERED: magnesium sulf-water 2g/50mL 50 ML IV PRN (18:25)
[2024-02-09] MEDS: levoTHYROXINE 88mcg tablet PO SCH (18:50)
--- NOTE | 2024-02-09 18:52 | NUR ---
ED meal request faxed to dietary at this time
[2024-02-09] MEDS: CefTRIAXone/D5W-Rocephin 1gm 50 ML IV ONE (19:44)
[2024-02-09] MEDS: normal saline 1000ml 1,000 ML IV SCH (19:45)
[2024-02-09 19:49] LABS: THYROID STIMULATING HORMONE 0.93 ulU/ml (0.34-4.50)
[2024-02-09] MEDS: K and/or MAG REPLACEMENT MC SCH (20:00)
[2024-02-09] MEDS ORDERED: TRIF10TA PO (20:35)
[2024-02-09] MEDS ORDERED: KETO10TA2 PO (20:35)
[2024-02-09] MEDS ORDERED: ALBU18HF2 INH (20:35)
[2024-02-09] MEDS ORDERED: CHL4T (20:35)
[2024-02-09] MEDS ORDERED: CARB-321 PO (20:35)
[2024-02-09] MEDS ORDERED: CELE-193 PO (20:35)
[2024-02-09] MEDS: clonazePAM 1mg tablet PO ONE (20:47)
[2024-02-09] MEDS: multivitamins, therapeutics tablet PO SCH (20:49)
[2024-02-09] MEDS: cyclobenzaprine 10mg tablet PO SCH (20:49)
[2024-02-09] MEDS: carbidopa/levodopa 50/200mg CR tablet PO SCH (21:00)
[2024-02-09 21:35] VITALS: BP 103/67; PULSE 65; RESP 16; TEMP 98.3; O2SAT 96
--- NOTE | 2024-02-09 21:35 | NUR ---
Patient in room [facility] 4020. I have received report from Gerald LUNA and had the opportunity to ask questions and assume patient care.
[2024-02-09] MEDS: docusate sod 100mg capsule PO SCH (22:12)
[2024-02-09] MEDS ORDERED: KETOROLAC TROMETHAMINE PO PRN (23:00)
[2024-02-09] MEDS ORDERED: Melatonin 3mg tablet PO PRN (23:00)
[2024-02-10 00:08] VITALS: RESP 16; O2SAT 96
[2024-02-10 06:00] VITALS: BP 112/73; PULSE 71; RESP 16; TEMP 98.1; O2SAT 94
--- NOTE | 2024-02-10 06:29 | NUR ---
Problems reprioritized. Patient report given, questions answered & plan of care reviewed with Isis RN.
[2024-02-10 06:50] LABS: MAGNESIUM 2.2 MG/DL (1.5-2.4); POTASSIUM 3.9 MMOL/L (3.5-5.1)
[2024-02-10 08:00] VITALS: RESP 16; O2SAT 94
[2024-02-10] MEDS: KETOROLAC TROMETHAMINE PO PRN (08:21)
[2024-02-10] MEDS: pantoprazole 40mg Tablet.DR PO SCH (08:21)
[2024-02-10] MEDS: FLUoxetine 20mg capsule PO SCH (08:22)
[2024-02-10] MEDS ORDERED: polyethylene glycol 3350 17gm powd pack PO PRN (09:45)
[2024-02-10] MEDS ORDERED: docusate sod 250mg capsule PO PRN (09:45)
[2024-02-10] MEDS ORDERED: ibuprofen 200mg tablet PO PRN (09:45)
[2024-02-10] MEDS: clonazePAM 1mg tablet PO PRN (10:03)
[2024-02-10] MEDS: topiramate 100mg tablet PO SCH (11:05)
[2024-02-10] MEDS: oxybutynin 5mg tablet PO SCH (11:05)
--- NOTE | 2024-02-10 12:44 | NUR ---
went to pharmacy to [facility] belongings bag full of medications returned to patient. Reviewed all discharge orders with pt and she verbalized understanding-awaiting her ride to arrive to transfer out
--- NOTE | 2024-02-10 13:10 | NUR ---
removed piv RT forearm with cannula intact, pt tolerated well. Again reviewed dc instructions with pt, she packed all belongings and was transported to her friend's car via wheelchair with all belongings and home meds from pharmacy
[2024-02-10] MEDS ORDERED: buPROPion 100mg tablet PO SCH (20:00)
[2024-02-10] MEDS ORDERED: methylphenidate 5mg tablet PO SCH ×2 (20:00)
== END 2024-02-10 13:10 | disposition home health service (06) | DRG 57 ==
LOC: ER 15:13 → ED HOLD 18:25 → ORTHO 4S 21:30
PROVIDERS: ADMIT Internal Medicine; ATTEND Internal Medicine
DX: G20.A1 Parkinson's disease without dyskinesia, without mention of fluctuations (principal); N39.0 Urinary tract infection, site not specified; F33.2 Major depressive disorder, recurrent severe without psychotic features; E86.0 Dehydration; E03.9 Hypothyroidism, unspecified; J45.909 Unspecified asthma, uncomplicated; G89.4 Chronic pain syndrome; F41.9 Anxiety disorder, unspecified; R29.898 Other symptoms and signs involving the musculoskeletal system; Z90.49 Acquired absence of other specified parts of digestive tract; Z88.1 Allergy status to other antibiotic agents; Z88.8 Allergy status to other drugs, medicaments and biological substances; Z79.899 Other long term (current) drug therapy
CPT/HCPCS: 36415; 80048; 81001; 83735; 84132; 84145; 84443; 85025; 87077; 87081; 87088; 87186; 96360; 97116; 97162; 99285; G0378; J0696; J7030

== ENCOUNTER 2024-05-16 14:38 | Outpatient (CLI) | payer MEDICARE ==
[~2024-05-16] VITALS: Ht 167.6 cm; Wt 49.9 kg
[~2024-05-16 14:38] MED LIST changes: -BREX2TAB PO; +CELE-193 PO; -CHOL100017 PO; -GABA-530 PO; +KETO10TA2 PO; -NITR0.4T48 SL; -PRED5DRO23 LEFTEYE; -SENN-25 PO; -[UNRECOGNIZED DRUG - OTHER] SQ
[2024-05-16 16:10] VITALS: PULSE 94; RESP 18; O2SAT 97
[2024-05-16] MEDS: albuterol 2.5 MG/3 ML nebule NEB ONE (16:14)
== END 2024-05-16 23:59 | disposition home or self-care (01) ==
LOC: RT 14:38
PROVIDERS: ATTEND Internal Medicine Pulmonary Disease
DX: J44.89 Other specified chronic obstructive pulmonary disease (principal)
CPT/HCPCS: 94010; 94727; 94729; 94760